=== PATIENT | male | born 1965 | race Caucasian/White ===

== ENCOUNTER 2019-09-28 09:13 | Observation (INO) | payer OTHER ==
[~2019-09-28] VITALS: Ht 182.9 cm; Wt 81.6 kg
--- NOTE | ~2019-09-28 | OP ---
[address] [address] OPERATIVE REPORT Name: ANGELIA SANCHEZ Room: [address] IN .R.#: [id number] Admission: 09/28/19 Attend Phys: Jose David Dhillon MD Discharge: Date of : 69 Report #: [id number] THIS REPORT FOR: //name// CC: Steve Dhillon DICTATED BY: Javi Cao DO DATE OF SERVICE: 09/28/2019 PREOPERATIVE DIAGNOSIS: Acute appendicitis. POSTOPERATIVE DIAGNOSIS: Acute appendicitis. PRIMARY SURGEON: Jose David Dhillon MD CO-SURGEON AND GRAIN COMBINER: Javi Cao DO, PGY-3 PROCEDURE PERFORMED: Laparoscopic appendectomy. ANESTHESIA TYPE: General and local. ESTIMATED BLOOD LOSS: 10 mL. SPECIMEN: Appendix. COMPLICATIONS: None. INDICATIONS FOR PROCEDURE: The patient is a pleasant 54-year-old male, who presented to the Emergency Department with chief complaint of right lower quadrant abdominal pain. The patient was found to have acute appendicitis on CT abdomen and pelvis, recommended laparoscopic appendectomy. Full discussion of procedure, alternatives, risks, and possible complications discussed to include but not limited to bleeding, infection, postoperative pain, scarring, hernia, injury to other underlying abdominal organs mainly bladder and bowel, staple line failure, stump appendicitis, need for further surgery, and anesthesia risks as well as low risk of conversion to open procedure. The patient voiced understanding of these risks and agreed to proceed with surgery. DESCRIPTION OF PROCEDURE: The patient was again seen and examined in preoperative holding. Fully informed written consent was obtained. Preoperative antibiotics, 2 grams Ancef, were given. The patient was subsequently transferred to the operating room suite and placed on the operating room table in the supine position. At this time, Anesthesia induced general anesthesia via endotracheal intubation and this was successful. SCDs were placed to bilateral lower extremity calves. Left arm was [place] [id number] OPERATIVE REPORT Name: ANGELIA SANCHEZ RADHA Room: [address] IN [facility]#: [id number] Admission: 09/28/19 Attend Phys: Jose David Dhillon MD Discharge: Date of : 69 Report #: [id number] placed on an arm board. All extremities and joints were padded and protected. Grounding pad was placed to right lateral thigh. The patient was prepped and draped using standard sterile fashion. Time-out was performed prior to onset of procedure. We began by using a Veress needle in the left upper quadrant. Abdomen was insufflated first using low flow and then high flow. We then Optiviewed in with a 5-mm trocar and 5-mm 0-degree laparoscopic camera. Once we were into the abdomen, an additional 5-mm trocar was placed in the suprapubic region as well as a 12-mm trocar just superior to the umbilicus. A 30-degree 5-mm laparoscopic camera was placed in the abdomen. We turned our attention to the left upper quadrant where the Veress needle had been used for insufflation. There was no injury to underlying abdominal organs or structures. The Veress needle was removed. Next, the patient was placed in Trendelenburg with left side down. Appendix was noted to be retrocecal. Using a combination of laparoscopic suction and hook cautery, inflammatory adhesions to the peritoneum were taken down. The appendix was tracked from its tip back to the convergence of the tinea of the cecum. Once the appendix was mobilized, a window was made at the appendiceal base. A 45 mm Endo-LESA purple load was used to take the appendix across the base. An additional purple load was then used to staple the mesoappendix. There was a small area of hemorrhage at the staple line of the mesoappendix. This was easily cauterized using hook cautery. Right lower quadrant was copiously irrigated and suctioned. All hemorrhaging had been controlled. Appendix was then placed into a 5-mm EndoCatch bag through the umbilical trocar. The patient was placed back supine. Abdomen was desufflated under direct visualization. The 5-mm trocars were removed. Once it was fully desufflated, the 12 mm trocar was removed and the appendix was removed through the umbilical incision. At this time, the fascia was closed with interrupted 0 Vicryl in a figure of eight fashion and skin was closed using a running subcuticular 4-0 Monocryl. The additional 5-mm trocar sites were closed using subcuticular interrupted 4-0 Monocryl. About 30 mL of 0.5% Marcaine were used in total for local anesthetic, 10 at each incision site. Abdomen was cleansed using wet and dry lap. Sterile dressing and Dermabond were applied. The patient was extubated in the operating room and transferred to PACU in stable condition. He tolerated the procedure well and surgery was without complication. By: [id number] Geovany Dhillon MD /yareli
[~2019-09-28 09:13] MED LIST: FLEXERIL PO; IBUPROFEN 800800 M1 PO; NOHOMEMEDICATIONS; ULTRAM 50MG TAB50 MG PO
[2019-09-28 09:17] VITALS: BP 138/94
[2019-09-28] MEDS ORDERED: ADDERALL 10 MG10 MG PO (09:19)
[2019-09-28 09:58] LABS: ABSOLUTE BASOPHILS 0.1 thou/uL (0.0-0.2); ABSOLUTE EOSINOPHILS 0.1 thou/uL (0.0-0.7); ABSOLUTE LYMPHOCYTES 1.1 thou/uL (0.8-5.3); ABSOLUTE MONOCYTES 0.6 thou/uL (0.0-1.2); ABSOLUTE NEUTROPHILS 9.7 thou/uL (1.6-8.1); BASOPHILS 0.7 %; EOSINOPHILS 0.8 %; HEMATOCRIT 44.7 % (42.0-52.0); HEMOGLOBIN 15.1 gm/dL (14.0-18.0); LYMPHOCYTES 9.4 %; MCH 30.1 pg (26.0-34.0); MCHC 33.7 g/dL (28.0-37.0); MCV 89.3 fL (80.0-100.0); MONOCYTES 5.2 %; MPV 8.7 fl. (7.2-11.1); NUCLEATED RBCS 0 /100WBC; PLATELET COUNT* 192 thou/uL (150-400); POLYS 83.9 %; RBC 5.01 mil/uL (4.50-6.00); RDW-CV 13.9 % (10.5-14.5); WBC 11.5 thou/uL (4.0-11.0)
[2019-09-28 10:07] LABS: CALCIUM 9.1 mg/dL (8.5-10.1); POTASSIUM 4.2 mmol/L (3.5-5.1)
[2019-09-28 10:11] LABS: ALBUMIN 3.8 g/dL (3.4-5.0); TOTAL BILIRUBIN 0.5 mg/dL (<0.1-1.0); TOTAL PROTEIN 7.3 g/dL (6.4-8.2)
[2019-09-28 10:59] LABS: URINE BILIRUBIN NEGATIVE (Negative); URINE BLOOD NEGATIVE (Negative); URINE CLARITY CLEAR; URINE COLOR YELLOW; URINE GLUCOSE-RANDOM NEGATIVE (Negative); URINE KETONES NEGATIVE (Negative); URINE LEUKOCYTES-REFLEX NEGATIVE (Negative); URINE NITRITE-REFLEX NEGATIVE (Negative); URINE PROTEIN NEGATIVE (Negative); URINE SPECIFIC GRAVITY 1.025 (1.005-1.030); URINE UROBILINOGEN 0.2 E.U./dl (0.2-1.0)
--- NOTE | 2019-09-28 12:02 | NUR ---
REPORT GIVEN TO SURGERY NURSE. PT CHANGED INTO GOWN. PT CLOTHES AND BELONGINGS TAKEN PACKED IN BAG AND PT TO TAKE PT BELONGINGS WITH HER. PAPERWORK HANDED TO SURGERY NURSE. PT A&O X4 UPON DEPARTURE FROM ED.
[2019-09-28 12:04] VITALS: BP 125/74
--- NOTE | 2019-09-28 14:40 | NUR ---
PATIENT ARRIVED TO UNIT AT 1430. ALERT AND ORIENTED X 4. YAYA SIGNS STABLE ON ROOM AIR. C/O ABDOMINAL PAIN AND DISCOMFORT AT THIS TIME. IV PATENT AND SALINE LOCKED. ORIENTED PATIENT TO ROOM. CALL LIGHT WITHIN REACH. NURSING WILL CONTINUE TO MONITOR.
--- NOTE | 2019-09-28 16:53 | NUR ---
PATIENT ALERT AND ORIENTED X 4. VITAL SIGNS STABLE ON ROOM AIR. IV PATENT WITH FLUIDS INFUSING PER MAR. PATIENT HAS NOT AMBULATED SINCE COMING BACK FROM SURGERY. PAIN BEING MANAGED WITH PO MEDICATION. DENIES NAUSEA AT THIS TIME. DRESSINGS TO 3 ABDOMINAL LAP SITES CLEAN/DRY/INTACT. HOURLY ROUNDS MAINTAINED SINCE ARRIVING TO UNIT. CALL LIGHT WITHIN REACH. NURSING WILL CONTINUE TO MONITOR.
[2019-09-28] MEDS ORDERED: NORCO 5-325 TA1 EAC1 PO (17:18)
[2019-09-28 17:20] VITALS: BP 125/74
--- NOTE | 2019-09-28 18:13 | NUR ---
PATIENT DISCHARGED FROM UNIT AT 1805. ALERT AND ORIENTED X 4. VITAL SIGNS STABLE ON ROOM AIR. IV DISCONTINUED. PATIENT TOLERATING REGULAR DIET AND AMBULATING IN HALLWAY. VOIDED 600ML POST PROCEDURE. PAIN BEING MANAGED WITH PO MEDICATION. DENIES NAUSEA. MEDICATION INFORMATION, DISCHARGE INFORMATION, AND SCRIPT GIVEN TO PATIENT. LEFT WITH ALL BELONGINGS. PATIENT LEFT WITH SPOUSE VIA TRUCK.
[2019-09-28 18:16] VITALS: BP 125/74
--- NOTE | 2019-09-29 15:37 | EKG ---
[place] [address] ELECTROCARDIOGRAM REPORT Name: ANGELIA SANCHEZ Room: [address] DIS IN .R.#: [id number] Admission: 09/28/19 Attend Phys: Jose David Dhillon MD Discharge: 09/28/19 Date of : 69 Report #: [id number] THIS REPORT FOR: //name// [facility] ED Test Date: 2019-09-28 Test Time: 09:46:32 Pat Name: ANGELIA SANCHEZ Department: Room: [facility] Gender: M Manager Qa: : 1965 Requested By: Pal Coleman Order Number: [id number] MD: Steve Edwards Measurements Intervals [place] Rate: 77 P: 63 MA: 187 QRS: 35 QRSD: 89 T: 67 QT: 377 QTc: 427 Interpretive Statements Sinus rhythm No previous ECG available for comparison Electronically Signed On 09-29-2019 15:37:11 [employer] by Steve Edwards [email or web address] <ELECTRONICALLY SIGNED> By: Steve Edwards MD, [facility] 09/29/19 1537 0946 0946 Steve Edwards MD, FAC /EPI
--- NOTE | 2019-10-01 15:07 | PATH ---
[facility] [address] [place] [address] PATHOLOGY RPT PROCEDURE Name: ANGELIA SANCHEZ Room: [address] [place]#: [id number] Admission: 09/28/19 Date of : 69 Discharge: 09/28/19 Report #: [id number] Path Case #: [id number] [facility] Accession Number: [id number] . 01 Material submitted: . appendix - APPENDIX . 01 Clinical history: . Acute appendicitis . 02 Diagnosis: Appendix: - Acute appendicitis, periappendicitis and serositis. (JULES/db; 10/01/2019) LBQ 10/01/2019 1245 Local . 02 Electronically signed: . Ajith Fung MD, Pathologist NPI- [id number] . 01 Gross description: . The specimen is received in formalin, labeled "Angelia Sanchez, appendix". Received is a vermiform appendix measuring 6.0 cm in length by up to 0.9 cm in diameter with a small amount of attached mesoappendix. The serosal surface is pale lou and slightly shaggy in appearance. The surgical margin is closed with a line of pricila. The pricila are removed and the new margin is inked black. Sectioning reveals a patent lumen filled with a slight amount of fecal material. The specimen is submitted representatively in cassettes A1 and A2, with the proximal margin and bisected tip submitted in cassette A1. (CAA; 09/30/2019) QAC/QAC 10/01/2019 1244 Local . 02 Pathologist provided ICD-10: K35.80, K65.8 . 02 CPT . 677911 Specimen Comment: A courtesy copy of this report has been sent to [phone] Specimen Comment: Report sent to Performed at: [address], [place], [place] [id number] MD Kip Caldwell MD Phone: [phone] Performed at: [address] [facility] [address] [place], [place] [id number] MD Ajith Fung MD Phone: [phone]
== END 2019-09-28 18:05 | disposition home or self-care (01) ==
LOC: M.ERS 09:13 → M.ORTHSURG 10:49 → M.TBA-ER 10:49 → M.ORTHSURG 14:18
PROVIDERS: Emergency Medicine Emergency Medical Services; ADMIT Surgery
DX: K35.80 Unspecified acute appendicitis (principal); R11.2 Nausea with vomiting, unspecified; F17.210 Nicotine dependence, cigarettes, uncomplicated; Z79.899 Other long term (current) drug therapy

== ENCOUNTER 2019-11-25 07:23 | Emergency (ER) | payer OTHER ==
[~2019-11-25] VITALS: Ht 182.9 cm; Wt 81.7 kg
[~2019-11-25 07:23] MED LIST changes: +ADDERALL 10 MG10 MG PO; +NORCO 5-325 TA1 EAC1 PO
[2019-11-25] MEDS ORDERED: GENTAK5 ML EA. EYE (08:10)
[2019-11-25] MEDS ORDERED: ERYTHROMYCIN E3.5 G3 OPHTHALMIC (08:10)
[2019-11-25 08:31] VITALS: BP 124/87
== END 2019-11-25 08:32 | disposition home or self-care (01) ==
LOC: M.ERS 07:23
DX: T15.92XA Foreign body on external eye, part unspecified, left eye, initial encounter (principal); G89.29 Other chronic pain; M54.9 Dorsalgia, unspecified; M19.90 Unspecified osteoarthritis, unspecified site; F17.210 Nicotine dependence, cigarettes, uncomplicated; Z98.890 Other specified postprocedural states; Y92.89 Other specified places as the place of occurrence of the external cause

== ENCOUNTER → 2020-09-22 | Outpatient (CLI) | payer OTHER ==
[~2020-09-22] MED LIST changes: +ERYTHROMYCIN E3.5 G3 OPHTHALMIC; +GENTAK5 ML EA. EYE
== END ==
LOC: M.LAB 07:57
PROVIDERS: ATTEND Podiatrist
DX: Z01.812 Encounter for preprocedural laboratory examination (principal); Z20.828 Contact with and (suspected) exposure to other viral communicable diseases

== ENCOUNTER → 2021-07-15 | Outpatient (CLI) | payer OTHER | LOC: M.LAB 07:46 | PROVIDERS: ATTEND Podiatrist | DX: Z20.822 Contact with and (suspected) exposure to COVID-19 (principal) ==